=== PATIENT | female | born 1960 | race African-American/Black ===

== ENCOUNTER → 2016-09-07 | Outpatient (CLI) | payer MEDICARE | LOC: RAD 12:52 | PROVIDERS: ATTEND Internal Medicine Gastroenterology | DX: R07.9 Chest pain, unspecified (principal); R13.10 Dysphagia, unspecified; R91.1 Solitary pulmonary nodule | CPT/HCPCS: 71250 ==

== ENCOUNTER → 2016-09-20 | Outpatient (CLI) | payer MEDICARE ==
[2016-09-20 13:12] LABS: ALANINE AMINOTRANSFERASE 49 U/L (9-52); ALBUMIN 3.5 g/dL (3.5-5.0); ALKALINE PHOSPHATASE 209 U/L (38-126); ANION GAP 11 (5-19); ASPARTATE AMINO TRANSFERASE 28 U/L (14-36); BILIRUBIN,TOTAL 0.5 mg/dL (0.2-1.3); BLOOD UREA NITROGEN 12 mg/dL (7-20); CALCIUM 8.9 mg/dL (8.4-10.2); CARBON DIOXIDE 29 mmol/L (22-30); CHLORIDE 94 mmol/L (98-107); CHOLESTEROL 138.41 mg/dL (0-200); CREATININE RESULT 4.23 mg/dL (0.52-1.25); Direct HDL 35 mg/dL (>40); GLUCOSE 93 mg/dL (75-110); POTASSIUM 3.5 mmol/L (3.6-5.0); SODIUM 133.8 mmol/L (137-145); TOTAL PROTEIN 6.6 g/dL (6.3-8.2); TRIGLYCERIDES 139 mg/dL (<150)
[2016-09-20 13:22] LABS: DIRECT LDL 74 mg/dL (<100)
== END ==
LOC: OD 12:00
PROVIDERS: ATTEND Internal Medicine
DX: E78.4 Other hyperlipidemia (principal); I25.118 Atherosclerotic heart disease of native coronary artery with other forms of angina pectoris; Z98.61 Coronary angioplasty status; Z95.1 Presence of aortocoronary bypass graft; I12.9 Hypertensive chronic kidney disease with stage 1 through stage 4 chronic kidney disease, or unspecified chronic kidney disease; N18.9 Chronic kidney disease, unspecified; E11.9 Type 2 diabetes mellitus without complications; R01.1 Cardiac murmur, unspecified; Z79.899 Other long term (current) drug therapy
CPT/HCPCS: 36415; 80053; 80061

== ENCOUNTER → 2016-10-05 | Outpatient (CLI) | payer MEDICARE ==
--- NOTE | 2016-10-05 13:29 | XCELERA REPORT ---
[address] [address] Transthoracic Echocardiogram Report Name: HERB POOZ Age: 56 yrs Gender: Female : 1960 Patient Status: Preadmit Patient Location: Study Date: 10/05/2016 08:10 AM Height: 60 in Weight: 214 lb BSA: 1.9 m2 Procedure: A two-dimensional transthoracic echocardiogram with color flow and Doppler was performed. The study was technically limited with all images being suboptimal in quality. Reason For Study: CP R07.9 History: CP R07.9. Ordering Physician: LULA YANG Performed By: Denver Perez Interpretation Summary The left ventricle is normal in size. There is normal left ventricular wall thickness. LV EF is 55% Left ventricular systolic function is low normal. Doppler measurements suggest normal left ventricular diastolic function The left ventricular wall motion is normal. There is no thrombus. There is no ventricular septal defect visualized. The right ventricle is not well visualized secondary to technical limitations The right atrium is normal. The left atrial size is normal. The interatrial septum is intact with no evidence for an atrial septal defect. There is no evidence of mitral valve prolapse. There is no mitral valve stenosis. There is a mild amount of mitral regurgitation There is no aortic valvular vegetation. There is no aortic valve stenosis There is no LVOT obstruction. No aortic regurgitation is present. There is no tricuspid stenosis. There is a mild amount of tricuspid regurgitation There is moderate pulmonary hypertension by echo RVSP is 54 to 59 mm of Hg , with RA mean of 5 to 10. There is no pulmonic valvular stenosis. There is a mild amount of pulmonic regurgitation The aortic root is normal size. There is no pericardial effusion. MMode/2D Measurements \T\ Calculations RVDd: 3.7 cm LVIDd: 5.4 cm FS: 26.3 % Ao root diam: 2.9 cm IVSd: 1.1 cm LVIDs: 4.0 cm EDV(Teich): 141.8 ml LVPWd: 1.1 cm ESV(Teich): 69.4 ml Ao root area: 6.8 cm2 EF(Teich): 51.0 % LA dimension: 3.8 cm Doppler Measurements \T\ Calculations MV E max tiago: MV P1/2t max tiago: Ao V2 max: LV V1 max P.0 cm/sec 115.5 cm/sec 142.7 cm/sec 4.8 mmHg MV A max tiago: MV P1/2t: 49.9 msec Ao max PG: LV V1 max: 55.3 cm/sec 8.1 mmHg 110.1 cm/sec MV E/A: 2.0 MVA(P1/2t): 4.4 cm2 MV dec slope: 677.5 cm/sec2 MV dec time: 0.18 sec PA V2 max: PI end-d tiago: TR max tiago: RAP systole: 98.2 cm/sec 180.5 cm/sec 348.7 cm/sec 10.0 mmHg PA max PG: TR max P.9 mmHg 48.6 mmHg RVSP(TR): 58.6 mmHg Left Ventricle The left ventricle is normal in size. There is normal left ventricular wall thickness. LV EF is 55%. Left ventricular systolic function is low normal. Doppler measurements suggest normal left ventricular diastolic function. The left ventricular wall motion is normal. There is no thrombus. There is no ventricular septal defect visualized. Right Ventricle The right ventricle is not well visualized secondary to technical limitations. Atria The right atrium is normal. The left atrial size is normal. The interatrial septum is intact with no evidence for an atrial septal defect. Mitral Valve There is no evidence of mitral valve prolapse. There is no vegetation seen on the mitral valve. There is no mitral valve stenosis. There is a mild amount of mitral regurgitation. Aortic Valve There is no aortic valvular vegetation. There is no aortic valve stenosis. There is no LVOT obstruction. No aortic regurgitation is present. Tricuspid Valve There is no tricuspid stenosis. There is a mild amount of tricuspid regurgitation. There is moderate pulmonary hypertension by echo. RVSP is 54 to 59 mm of Hg , with RA mean of 5 to 10. Pulmonic Valve There is no pulmonic valvular stenosis. There is a mild amount of pulmonic regurgitation. Great Vessels The aortic root is normal size. Effusions There is no pericardial effusion. : LULA YANG > Lula Yang
== END ==
LOC: SP 07:14
PROVIDERS: ATTEND Specialist
DX: R07.9 Chest pain, unspecified (principal)
CPT/HCPCS: 93306

== ENCOUNTER → 2016-10-11 | Outpatient (CLI) | payer MEDICARE ==
[~2016-10-11] MED LIST: AMINOPHYLLINE INJ/PF 250 MG/10 ML SDV IV ONE; REGADENOSON INJ 0.4 MG/5 ML DISP.SYRIN IV ONE
--- NOTE | 2016-10-12 10:30 | DRAGON STRESS TEST REPORT ---
INTRAVENOUS LEXISCAN CARDIOLITE STRESS TEST USING SINGLE PHOTON EMMISION COMPUTERIZED TOMOGRAPHIC. DATE OF PROCEDURE: October 11, 2016 INDICATION : Chest pain CARDIAC RISK FACTORS: Diabetes, hypertension, dyslipidemia RESTING EKG: Sinus rhythm with minor nonspecific ST-T wave changes STRESS EKG: No significant changes noted with LexiScan bolus REASON FOR TERMINATION: Protocol. PROCEDURE REPORT: Baseline heart rate 83 beats per minute with blood pressure of 113/33. Patient had no significant complaints. Heart rate at 2 minutes post bolus 100 with a blood pressure of 156/69. 3 minutes post bolus heart rate 86 with blood pressure of 157/65. No significant EKG changes were noted. Patient had no significant complaints during the procedure or postprocedure. CONCLUSIONS: Normal EKG and hemodynamic response to IV LexiScan. NUCLEAR DATA: At rest the patient was given 14.54 millicuries of technetium 99 sestamibi injected intravenously. As per protocol rest gated SPECT images were obtained. Subsequently the patient was given intravenous LexiScan at a dose of 0.4 mg in 5 mL intravenously, followed by flush with normal saline. Subsequently the stress dose of 42.4 millicuries of technetium 99 sestamibi was injected intravenously. As per protocol stress gated images were obtained. NUCLEAR INTERPRETATION: Both raw and processed data were used for interpretation. Visual, qualitative, computer-generated quantitative data was used. There was good myocardial uptake of technetium compound. Motion artifact and soft tissue attenuations were noted. Increased visceral uptake was noted. No definitive areas of transient perfusion defect noted. No definitive areas of fixed perfusion defect or scars noted. Significant soft tissue attenuation was noted. Increased thyroid uptake was noted. EKG gated imaging showed LV EF at 53 %, rest and stress gated EF similar visually. T. I D. ratio was 1.20. Lung heart ratio noted to be within normal limits 0.41. No significant extracardiac and abnormal radiotracer activities were noted. RV free wall uptake was noted to be increased. IMPRESSION: Also refer to comments under nuclear interpretation. Also test results needs to be interpreted in the context of pretest probability. 1. There is no definitive scintigraphic evidence of LexiScan induced myocardial ischemia. 2. There is no definitive scintigraphic evidence of myocardial infarction/scar. 3. EKG gated imaging shows left ejection fraction of approximately 53 %. 4. Clinical correlation requested as occasionally single vessel disease or balanced ischemia could be missed. In approximately 10% of the cases Lexiscan may not cause adequate vasodilatory stress. 5. Increased thyroid uptake was noted. Lung uptake was noted to be at the upper limits of normal. RECOMMENDATIONS: Aggressive risk factor modification, medical therapy. Clinical correlation with echocardiogram derived ejection fraction. Inability to exercise by itself can lead to increased cardiovascular event risks. Consider cardiology consultation and or follow-up if clinically indicated. I AM AVAILABLE FOR CARDIOLOGY CONSULTATION AND FOLLOWUP IF REQUESTED BY PMD Josué Eddy M.D., DI Stranding Machine Operator aircraft ordnance systems mechanic, Board certified in cardiovascular diseases, Nuclear cardiology, Echocardiography Cardiac CT and cardiac MRI Ph. [phone] [facility]
== END ==
LOC: RAD 06:46
PROVIDERS: ATTEND Specialist
DX: R07.9 Chest pain, unspecified (principal); I25.118 Atherosclerotic heart disease of native coronary artery with other forms of angina pectoris; E11.9 Type 2 diabetes mellitus without complications; I10 Essential (primary) hypertension; E78.5 Hyperlipidemia, unspecified
CPT/HCPCS: 93017; 78452; A9500; J2785; J0280; Q9969

== ENCOUNTER 2017-02-14 21:09 | Emergency (ER) | payer MEDICARE ==
[2017-02-14 22:27] LABS: ABSOLUTE BASOPHILS # (AUTO) 0.1 10^3/uL (0.0-0.2); ABSOLUTE EOSINOPHILS # (AUTO) 0.2 10^3/uL (0.0-0.6); ABSOLUTE LYMPHOCYTES (AUTO) 1.7 10^3/uL (0.5-4.7); ABSOLUTE MONOCYTES (AUTO) 0.6 10^3/uL (0.1-1.4); ABSOLUTE NEUT (AUTO) 4.3 10^3/uL (1.7-8.2); BASOPHILS % (AUTO) 0.9 % (0-2); EOSINOPHILS % (AUTO) 3.5 % (0-6); HEMATOCRIT 37.5 % (36.0-47.0); HEMOGLOBIN 11.9 g/dL (12.0-15.5); HGB HCT DIFFERENCE -1.8; LYMPHOCYTES % (AUTO) 24.4 % (13-45); MEAN CORPUSCULAR HEMOGLOBIN 27.1 pg (27.0-33.4); MEAN CORPUSCULAR HGB CONC 31.7 g/dL (32.0-36.0); MEAN CORPUSCULAR VOLUME 86 fl (80-97); MONOCYTES % (AUTO) 8.1 % (3-13); RED BLOOD COUNT 4.38 10^6/uL (3.72-5.28); SEGMENTED NEUTROPHILS % (AUTO) 63.1 % (42-78); WHITE BLOOD COUNT 6.8 10^3/uL (4.0-10.5)
[2017-02-14 22:41] LABS: ALANINE AMINOTRANSFERASE 48 U/L (9-52); ALBUMIN 4.4 g/dL (3.5-5.0); ALKALINE PHOSPHATASE 221 U/L (38-126); ANION GAP 15 (5-19); ASPARTATE AMINO TRANSFERASE 29 U/L (14-36); BILIRUBIN,DIRECT 0.5 mg/dL (0.0-0.4); BILIRUBIN,TOTAL 0.6 mg/dL (0.2-1.3); BLOOD UREA NITROGEN 14 mg/dL (7-20); CALCIUM 9.2 mg/dL (8.4-10.2); CARBON DIOXIDE 29 mmol/L (22-30); CHLORIDE 95 mmol/L (98-107); CREATINE KINASE 45 U/L (30-135); CREATININE RESULT 5.33 mg/dL (0.52-1.25); GLUCOSE 87 mg/dL (75-110); POTASSIUM 4.4 mmol/L (3.6-5.0); SODIUM 138.5 mmol/L (137-145); TOTAL PROTEIN 7.6 g/dL (6.3-8.2)
[2017-02-14 22:53] LABS: CREATINE KINASE MB 1.05 ng/mL (<4.55)
[2017-02-14 22:57] LABS: TROPONIN I 0.036 ng/mL
[2017-02-14] MEDS ORDERED: METOCLOPRAMIDE HCL INJ/PF 10 MG/2 ML SDV IV ONE (23:41)
[2017-02-14] MEDS ORDERED: DIPHENHYDRAMINE HCL 50 MG/ML VIAL IV ONE (23:41)
--- NOTE | 2017-02-15 00:37 | ER Document Report ---
ED General - General Chief Complaint: Chest Pain Stated Complaint: CHEST PAIN AND HEADACHE Time Seen by Provider: 02/14/17 23:29 Notes: Patient is a pleasant 56-year-old female who presents with complaint of tightness in her chest and headache. Patient says that she has a tightness in her chest every day. She states she has had it every day since her coronary bypass surgery in February of last year. She is followed by a local tool designer here as well as a tool designer in [place]. She says that she recently had a stress test in September because of the continued chest tightness which was normal. She has a follow-up appointment with her tool designer in [place] on February 27 because of the continued chest tightness. She just saw her tool designer last month and they did some medication adjustments but she said it made no difference. She said the main reason why she came in today is that at the end of dialysis she developed a headache. She says she usually does not have a headache. She says again the chest tightness is something that has been continuous but headache is something new. She says the headache is started to improve some. She says she gets dialysis Sunday and Sunday. She had a full dialysis today. She denies any recent fevers or infections. She has no other complaints at this time. No focal weakness or numbness. Headache gradually worsened at the end of dialysis. TRAVEL OUTSIDE OF THE [place] IN LAST 30 DAYS: No - Related Data Allergies/Adverse Reactions: SAMM Inhibitors [Samm Inhibitors] Allergy (Unknown, Verified 12/05/13 18:50) ACEINHIBITORS [SAMM Inhibitors] Allergy (Unknown, Verified 12/05/13 18:50) erythromycin base [Erythromycin Base] Allergy (Unknown, Verified 12/05/13 18:50) Iodinated Contrast- Oral and IV Dye [IV Dye, Iodine Containing] Allergy (Unknown , Verified 12/05/13 18:50) Penicillins Allergy (Unknown, Verified 12/05/13 18:50) quinapril HCl [From Accupril] Allergy (Unknown, Verified 12/05/13 18:50) quinine [Quinine] Allergy (Unknown, Verified 12/05/13 18:50) vancomycin [Vancomycin] Allergy (Unknown, Verified 12/05/13 18:50) promethazine HCl [From Phenergan] Allergy (Verified 12/05/13 18:50) Past Medical History - Social History Smoking Status: Unknown if Ever Smoked Frequency of alcohol use: None Drug Abuse: None Family History: Reviewed & Not Pertinent Patient has suicidal ideation: No Patient has homicidal ideation: No - Past Medical History Cardiac Medical History: Reports: Hx Hypercholesterolemia, Hx Hypertension Pulmonary Medical History: Denies: Hx Tuberculosis Endocrine Medical History: Reports: Hx Diabetes Mellitus Type 2 Renal/ Medical History: Reports: Hx End Stage Renal Disease, Hx Hemodialysis. Denies: Hx Peritoneal Dialysis Past Surgical History: Reports: Hx Abdominal Surgery - umbilical hernia, Hx Hysterectomy, Hx Tonsillectomy - and adenoids. Denies: Hx Pacemaker - Immunizations Hx Diphtheria, Pertussis, Tetanus Vaccination: Yes - <5 years Hx Pneumococcal Vaccination: 04/29/12 Review of Systems - Review of Systems Notes: My Normal Review Basic REVIEW OF SYSTEMS: CONSTITUTIONAL : Denies fever, chills, or sweats. Denies recent illness. EENT: Denies eye, ear, throat, or mouth pain or symptoms. Denies nasal or sinus congestion. CARDIOVASCULAR: Chest tightness RESPIRATORY: Denies cough, cold, or chest congestion. Denies shortness of breath, difficulty breathing, or wheezing. GASTROINTESTINAL: Denies abdominal pain. Denies nausea, vomiting, or diarrhea. Denies constipation. Last BM: MUSCULOSKELETAL: Denies neck or back pain or joint pain or swelling. SKIN: Denies rash or skin lesions. NEUROLOGICAL: Denies altered mental status or loss of consciousness. Has a headache. Denies weakness or paralysis or loss of use of either side. Denies problems with gait or speech. Denies sensory or motor loss. ALL OTHER SYSTEMS REVIEWED AND NEGATIVE. Physical Exam - Vital signs Vitals: Temp Pulse Resp BP Pulse Ox 98.0 F 82 20 155/54 H 99 02/14/17 21:24 02/14/17 21:24 02/14/17 21:24 02/14/17 21:24 02/14/17 21:24 - Notes Notes: General Appearance: Well nourished, alert, cooperative, no acute distress, no obvious discomfort. Very comfortable appearing. Vitals: reviewed, See vital signs table. Head: no swelling or tenderness to the head Eyes: PERRL, EOMI, Conjuctiva clear Mouth: No decreasd moisture Neck: Supple, no neck tenderness, Lungs: No wheezing, No rales, No rhonci, No accessory muscle use, good air exchange bilaterally. Heart: Normal rate, Regular rythm, No murmur, no rub Abdomen: Normal BS, soft, No rigidity, No abdominal tenderness, No guarding, no rebound, no abdominal masses, no organomegaly Extremities: strength 5/5 in all extremities, good pulses in all extremities, no swelling or tenderness in the extremities, no edema. Fistula in left upper extremity has good palpable thrill and good distal pulses in extremity. Skin: warm, dry, appropriate color, no rash Neuro: speech clear, oriented x 3, normal affect, responds appropriately to questions. Cranial nerves II through XII are intact. Distal sensation intact. Patient moves all extremities without difficulty. Course - Re-evaluation Re-evalutation: 02/16/17 00:41 Patient's tightness in her chest is chronic since her coronary bypass a year ago. She has been followed for this by both her local tool designer and her tool designer in [place]. The only difference today was that she had associated headache. The headache is resolved. Headache was gradual in onset and seem to be related to her increase in blood pressure. She had no focal neurologic deficits associated with headache. Patient's EKG and repeat EKG as well as her troponin and delta troponin are normal. There are no concerning findings on her evaluation. I feel she is safe to follow-up with her tool designer as scheduled. I encouraged her to return to ER if she has worsening chest tightness, recurrent headaches, or feels unwell. Patient agrees with plan and will be discharged home. Dictation of this chart was performed using voice recognition software; therefore, there may be some unintended grammatical errors. - Vital Signs Vital signs: Temp Pulse Resp BP Pulse Ox 98.3 F 86 20 164/85 H 100 02/15/17 03:17 02/15/17 03:17 02/15/17 03:17 02/15/17 03:17 02/15/17 03:17 - Laboratory Result Diagrams: 02/14/17 22:17 02/14/17 22:17 Laboratory results interpreted by me: 02/14/17 02/14/17 22:17 22:17 Hgb 11.9 L MCHC 31.7 L RDW 18.0 H Plt Count 146 L Chloride 95 L Creatinine 5.33 H Est GFR ( Amer) 10 L Est GFR (Non-Af Amer) 8 L Direct Bilirubin 0.5 H Alkaline Phosphatase 221 H - EKG Interpretation by Me Additional EKG results interpreted by me: 02/15/17 00:32 EKG #1 is reviewed and interpreted by me. EKG shows normal sinus rhythm with rate of [address] segment elevation or depression. No new T-wave inversions in comparison to old EKG from December 05, 2013. AK interval, QRS duration , QTc intervals are within normal range. EKG #2 is reviewed and interpreted by me. EKG shows normal sinus rhythm with a rate of [address] segment elevation or depression. No new T wave inversions. AK interval is slightly prolonged. QRS duration, QTc intervals are within normal range. Discharge - Discharge Clinical Impression: Chest pain Qualifiers: Chest pain type: unspecified Qualified Code(s): R07.9 - Chest pain, unspecified Headache Qualifiers: Headache type: unspecified Headache chronicity pattern: acute headache Intractability: not intractable Qualified Code(s): R51 - Headache Condition: Good Disposition: HOME, SELF-CARE Additional Instructions: Please follow up with your doctor on February 27 as scheduled. Please return to the ER immediately if you have difficulty breathing or worsening of your chest tightness. Please return to the ER if you have recurrent headaches or vomiting. Referrals: AFTAB MELENDEZ MD [Primary Care Provider] - Follow up as needed
--- NOTE | 2017-02-15 01:25 | RADIOLOGY REPORT (SQ) ---
EXAM DESCRIPTION: CHEST SINGLE VIEW COMPLETED DATE/TIME: 02/15/2017 1:16 am REASON FOR STUDY: chest pain COMPARISON: 12/05/2013. NUMBER OF VIEWS: One view. TECHNIQUE: Single frontal radiographic view of the chest acquired. LIMITATIONS: None. FINDINGS: LUNGS AND PLEURA: No opacities, masses or pneumothorax. No pleural effusion. MEDIASTINUM AND HILAR STRUCTURES: No masses. Contour normal. HEART AND VASCULAR STRUCTURES: Heart enlarged without failure. Normal vasculature. BONES: No acute findings. HARDWARE: Sternotomy wires. Surgical clips. OTHER: No other significant finding. IMPRESSION: HEART ENLARGED WITHOUT FAILURE. NO OTHER SIGNIFICANT RADIOGRAPHIC FINDING IN THE CHEST. TECHNICAL DOCUMENTATION: JOB ID: [id number] [employer]- All Rights Reserved
[2017-02-15 03:19] VITALS: BP 164/85
--- NOTE | 2017-02-16 06:02 | EKG REPORT ---
SEVERITY:- NORMAL ECG - SINUS RHYTHM : Confirmed by: Lula Younger MD 16-Feb-2017 06:01:22
--- NOTE | 2017-02-16 06:02 | EKG REPORT ---
SEVERITY:- ABNORMAL ECG - SINUS RHYTHM FIRST DEGREE AV BLOCK NONSPECIFIC T ABNORMALITIES, LATERAL LEADS : Confirmed by: Lula Younger MD 16-Feb-2017 06:01:18
== END 2017-02-15 03:17 | disposition home or self-care (01) ==
LOC: ER 21:09
DX: R07.9 Chest pain, unspecified (principal); R51 Headache; Z99.2 Dependence on renal dialysis
CPT/HCPCS: 93005; 99285; 96374; 96375; 36415; 82553; 82550; 85025; 80053; 84484; 71010; 93010; J1200; J2765; 80061

== ENCOUNTER → 2017-02-14 | Outpatient (CLI) | payer MEDICARE ==
[2017-02-14 12:44] LABS: CHOLESTEROL 127.04 mg/dL (0-200); Direct HDL 42 mg/dL (>40); TRIGLYCERIDES 110 mg/dL (<150)
[2017-02-14 12:54] LABS: DIRECT LDL 62 mg/dL (<100)
== END ==
LOC: OD 11:46
PROVIDERS: ATTEND Internal Medicine
DX: E78.4 Other hyperlipidemia (principal); I25.118 Atherosclerotic heart disease of native coronary artery with other forms of angina pectoris; Z98.61 Coronary angioplasty status; Z95.1 Presence of aortocoronary bypass graft; I12.9 Hypertensive chronic kidney disease with stage 1 through stage 4 chronic kidney disease, or unspecified chronic kidney disease; N18.9 Chronic kidney disease, unspecified; E11.9 Type 2 diabetes mellitus without complications; R06.09 Other forms of dyspnea; R01.1 Cardiac murmur, unspecified; G47.30 Sleep apnea, unspecified; Z79.899 Other long term (current) drug therapy
CPT/HCPCS: 36415; 80061

== ENCOUNTER → 2017-10-04 | Outpatient (CLI) | payer MEDICARE | LOC: SP 08:18 | PROVIDERS: ATTEND Specialist | DX: R07.9 Chest pain, unspecified (principal); Z53.8 Procedure and treatment not carried out for other reasons ==

== ENCOUNTER → 2017-10-18 | Outpatient (CLI) | payer MEDICARE ==
--- NOTE | 2017-10-18 12:10 | DRAGON STRESS TEST REPORT ---
INTRAVENOUS LEXISCAN CARDIOLITE STRESS TEST USING SINGLE PHOTON EMMISION COMPUTERIZED TOMOGRAPHIC. DATE OF PROCEDURE: October 18, 2017, INDICATION : Chest pain CARDIAC RISK FACTORS: Hypertension, dyslipidemia, history of CAD with previous CABG RESTING EKG: Sinus rhythm without any significant baseline ST segment changes. STRESS EKG: No significant ST segment changes noted with LexiScan bolus REASON FOR TERMINATION: Protocol. PROCEDURE REPORT: Baseline heart rate 74 beats per minute with blood pressure of 99/61. Patient had no significant complaints. Patient was bolused with Lexiscan 0.4 mg intravenously followed by saline bolus. Heart rate at 2 minutes post bolus 103 with a blood pressure of 86/41. 3 minutes post bolus heart rate 69 with blood pressure of 76/43. Recovery blood pressure at 4 minutes into procedure was 105/52 with heart rate of 67. No significant EKG changes were noted. Patient had no significant complaints during the procedure or postprocedure. Patient injected with Aminophyllin 75 mg at 3 minutes or later after Lexiscan bolus. CONCLUSIONS: Normal EKG and hemodynamic response to IV LexiScan. NUCLEAR DATA: At rest the patient was given 13.55 millicuries of technetium 99 sestamibi injected intravenously. As per protocol rest gated SPECT images were obtained. On day of stress test, the patient was given intravenous LexiScan at a dose of 0.4 mg in 5 mL intravenously, followed by flush with normal saline. Subsequently the stress dose of 45.3 millicuries of technetium 99 sestamibi was injected intravenously. As per protocol stress gated images were obtained. NUCLEAR INTERPRETATION: Both raw and processed data were used for interpretation. Visual, qualitative, computer-generated quantitative data was used. There was good myocardial uptake of technetium compound. Motion artifact and soft tissue attenuations were noted. Increased visceral uptake was noted. Distal and mid inferolateral mild decreased uptake noted especially in the stress imaging consistent with mild ischemia, No definitive areas of fixed perfusion defect or scars noted. EKG gated imaging showed LV EF at 57 %, rest and stress gated EF similar visually. T. I D. ratio was 0.93. Lung heart ratio noted to be within normal limits 0.39. No significant extracardiac and abnormal radiotracer activities were noted. RV free wall uptake was noted to be WNL. IMPRESSION: Also refer to comments under nuclear interpretation. Also test results needs to be interpreted in the context of pretest probability. 1. Distal and mid inferolateral mild decreased uptake noted especially in the stress imaging consistent with mild ischemia 2. There is no definitive scintigraphic evidence of myocardial infarction/scar. 3. EKG gated imaging shows left ventricular ejection fraction of approx. 57 %. Borderline distal inferolateral hypokinesia suspected. 4. Clinical correlation requested as worse disease or balanced ischemia could be missed. In approximately 10% of the cases Lexiscan may not cause adequate vasodilatory stress. RECOMMENDATIONS: Aggressive risk factor modification and medical management. Further evaluation may be needed if continued symptoms or other high risk indicators are noted on clinical evaluation. Close cardiology follow-up is also recommended. Clinical correlation with echocardiogram derived ejection fraction. Inability to exercise by itself can lead to increased cardiovascular event risks. Consider cardiology consultation and or follow-up if clinically indicated. I am available for cardiology evaluation and consultation if requested by the screw down, unless patient already has a twister in. BRIE
== END ==
LOC: RAD 07:09
PROVIDERS: ATTEND Internal Medicine
DX: R07.9 Chest pain, unspecified (principal); I10 Essential (primary) hypertension; E78.5 Hyperlipidemia, unspecified; Z95.1 Presence of aortocoronary bypass graft; Z86.79 Personal history of other diseases of the circulatory system
CPT/HCPCS: 93017; 78452; A9500; J2785; J0280; Q9969

== ENCOUNTER → 2017-11-27 | Outpatient (CLI) | payer MEDICARE ==
--- NOTE | 2017-11-27 14:18 | RADIOLOGY REPORT (SQ) ---
EXAM DESCRIPTION: CT CHEST WITHOUT COMPLETED DATE/TIME: 11/27/2017 12:36 pm REASON FOR STUDY: DYSPNEA (R06.09), CHEST PAIN (R07.9) R91.1 SOLITARY PULMONARY NODULE R07.9 CHEST PAIN, UNSPECIFIED COMPARISON: [facility] CT angio chest 12/06/2013 CT chest without contrast 09/07/2016 TECHNIQUE: CT scan performed of the chest without intravenous contrast. Images reviewed with lung, soft tissue and bone windows. Reconstructed coronal and sagittal MPR images reviewed. All images st ored on PACS. All CT scanners at this facility use dose modulation, iterative reconstruction, and/or weight based d osing when appropriate to reduce radiation dose to as low as reasonably achievable (ALARA). [facility]: Dose Right [facility]: CareDose [facility]: Dose Right [facility]: Teradose 4D [facility]: A LITTLE WORLD RADIATION DOSE: CT Rad equipment meets quality standard of care and radiation dose reduction techniq ues were employed. CTDIvol: 18.9 mGy. DLP: 622 mGy-cm. mGy. LIMITATIONS: No technical limitations. FINDINGS: LUNGS AND PLEURA: In the right middle lobe, a 9 x 4 mm nodule is present on axial image 55 . This is stable since 2013, and requires no further specific follow up. Remainder of the lungs are otherwise unremarkable. No pleural effusions. No pneumothorax. Airways are patent. HILAR AND MEDIASTINAL STRUCTURES: No identified masses or abnormal nodes. No obvious aneurysm. HEART AND VASCULAR STRUCTURES: No aneurysm. No pericardial effusion. Old sternotomy for CABG UPPER ABDOMEN: No significant findings. Limited exam. THYROID AND OTHER SOFT TISSUES: No masses. No adenopathy. 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 OTHER: No other significant findings. IMPRESSION: Benign nodule in the right middle lobe. No lung parenchymal findings to explain history of dyspnea Old sternotomy for CABG Dense bony sclerosis from renal osteodystrophy TECHNICAL DOCUMENTATION: JOB ID: [id number] Quality ID # [id number]: Final reports with documentation of one or more dose reduction techniques (e.g., Au tomated exposure control, adjustment of the mA and/or kV according to patient size, use of iterative reconstruction technique) 2010 [employer]- All Rights Reserved Reading location - IP/workstation name: [facility]
== END ==
LOC: RAD 13:28
PROVIDERS: ATTEND Internal Medicine Critical Care Medicine
DX: G47.34 Idiopathic sleep related nonobstructive alveolar hypoventilation (principal); R06.09 Other forms of dyspnea; R07.9 Chest pain, unspecified; R12 Heartburn; R91.1 Solitary pulmonary nodule; Z95.1 Presence of aortocoronary bypass graft; F51.04 Psychophysiologic insomnia
CPT/HCPCS: 71250

== ENCOUNTER → 2018-04-23 | Outpatient (CLI) | payer MEDICARE, OTHER ==
--- NOTE | 2018-04-23 13:01 | RADIOLOGY REPORT (SQ) ---
EXAM DESCRIPTION: NM GASTRIC EMPTYING STUDY COMPLETED DATE/TIME: 04/23/2018 12:41 pm REASON FOR STUDY: GERD (K21.9) K21.9 GASTRO-ESOPHAGEAL REFLUX DISEASE WITHOUT ESOPHAGITIS COMPARISON: None. RADIONUCLIDE AND DOSE: 2.19 millicuries Tc-99m Sulfur Colloid. Egg salad sandwich The route of agent administration: Oral. TECHNIQUE: 1 minute serial static imaging performed at time of meal, 1 hour, 2 hours, 3 hours, and 4 hours as needed. Once stomach reaches 90% emptying, the test is complete. Image intensity values plo tted with respect to time with linear regression algorithm. LIMITATIONS: None. FINDINGS: Patient was observed for 4 hours. Immediate post meal serves as baseline. Gastric emptying at 60 minutes was 47%. Gastric emptying at 90 minutes was 61%. Gastric emptying at 120 minutes was 71% Gastric emptying at 240 minutes was 92%. IMPRESSION: NORMAL GASTRIC EMPTYING. TECHNICAL DOCUMENTATION: JOB ID: [id number] [employer]- All Rights Reserved Reading location - IP/workstation name: [facility]
== END ==
LOC: RAD 07:28
PROVIDERS: ATTEND Internal Medicine Gastroenterology
DX: K21.9 Gastro-esophageal reflux disease without esophagitis (principal)
CPT/HCPCS: 78264; A9541

== ENCOUNTER → 2018-06-05 | Outpatient (CLI) | payer MEDICARE, OTHER ==
--- NOTE | 2018-06-05 16:28 | XCELERA REPORT ---
[address] [facility] [address] Lower Extremity Venous Evaluation Procedure: Color flow and duplex imaging of the veins of the right lower extremity as well as the left Common Femoral vein. Right Sided Venous Evaluation Peroneal vein not well seen. Normal vessel filling wall to wall, compression and augmentation as well as Colour flow down to the infrageniculate veins. Left Sided Venous Evaluation The left common femoral vein is fully compressible. Spontaneous and phasic flow is present in the left common femoral vein. Interpretation Summary No duplex evidence of DVT or obstruction in the right lower extremity nor in the left Common Femoral vein. Name: HERB POZO Age: 57 yrs Gender: Female : 1960 Patient Status: Outpatient Patient Location: Study Date: 06/05/2018 03:04 PM Reason For Study: RLE SWELLING Ordering Physician: AFTAB MELENDEZ Performed By: Priya Lofton : AFTBA MELENDEZ > Indra Pinedo
== END ==
LOC: SP 12:11
PROVIDERS: ATTEND Family Medicine
DX: I80.221 Phlebitis and thrombophlebitis of right popliteal vein (principal); R60.0 Localized edema
CPT/HCPCS: 93971

== ENCOUNTER → 2018-08-01 | Outpatient (CLI) | payer MEDICARE, OTHER ==
[2018-08-01 14:34] LABS: ABSOLUTE BASOPHILS # (AUTO) 0.1 10^3/uL (0.0-0.2); ABSOLUTE EOSINOPHILS # (AUTO) 0.2 10^3/uL (0.0-0.6); ABSOLUTE LYMPHOCYTES (AUTO) 2.1 10^3/uL (0.5-4.7); ABSOLUTE MONOCYTES (AUTO) 0.7 10^3/uL (0.1-1.4); ABSOLUTE NEUT (AUTO) 5.2 10^3/uL (1.7-8.2); BASOPHILS % (AUTO) 0.8 % (0-2); EOSINOPHILS % (AUTO) 2.8 % (0-6); HEMATOCRIT 37.1 % (36.0-47.0); INTERNATIONAL RATION (INR) 1.02; LYMPHOCYTES % (AUTO) 24.9 % (13-45); MEAN CORPUSCULAR HEMOGLOBIN 27.1 pg (27.0-33.4); MEAN CORPUSCULAR HGB CONC 32.4 g/dL (32.0-36.0); MEAN CORPUSCULAR VOLUME 84 fl (80-97); MONOCYTES % (AUTO) 8.9 % (3-13); PARTIAL THROMBOPLASTIN TIME 26.7 SEC (23.5-35.8); PLATELET COUNT 217 10^3/uL (150-450); PROTHROMBIN TIME 13.9 SEC (11.4-15.4); RED BLOOD COUNT 4.42 10^6/uL (3.72-5.28); RED CELL DISTRIBUTION WIDTH 19.3 % (11.5-14.0); SEGMENTED NEUTROPHILS % (AUTO) 62.6 % (42-78); TOTAL CELLS COUNTED % (AUTO) 100 %; WHITE BLOOD COUNT 8.4 10^3/uL (4.0-10.5)
[2018-08-01 14:55] LABS: ANION GAP 11 (5-19); BLOOD UREA NITROGEN 35 mg/dL (7-20); CARBON DIOXIDE 31 mmol/L (22-30); CHLORIDE 96 mmol/L (98-107); GLUCOSE 96 mg/dL (75-110); POTASSIUM 5.8 mmol/L (3.6-5.0); SODIUM 138.3 mmol/L (137-145)
== END ==
LOC: OD 13:37
PROVIDERS: ATTEND Specialist
DX: I25.118 Atherosclerotic heart disease of native coronary artery with other forms of angina pectoris (principal); Z98.61 Coronary angioplasty status; Z95.1 Presence of aortocoronary bypass graft; R06.09 Other forms of dyspnea; I12.9 Hypertensive chronic kidney disease with stage 1 through stage 4 chronic kidney disease, or unspecified chronic kidney disease; E11.22 Type 2 diabetes mellitus with diabetic chronic kidney disease; N18.9 Chronic kidney disease, unspecified; E78.49 Other hyperlipidemia; G47.30 Sleep apnea, unspecified; Z79.899 Other long term (current) drug therapy
CPT/HCPCS: 36415; 80051; 82565; 82947; 83735; 84520; 85025; 85610; 85730

== ENCOUNTER → 2018-09-05 | Outpatient (CLI) | payer MEDICARE, OTHER ==
--- NOTE | 2018-09-05 22:50 | XCELERA REPORT ---
[address] [address] Transthoracic Echocardiogram Report Name: HERB POZO Age: 58 yrs Gender: Female : 1960 Patient Status: Outpatient Patient Location: RAD Study Date: 09/05/2018 01:55 PM Height: 60 in Weight: 230 lb BSA: 2.0 m2 Procedure: A two-dimensional transthoracic echocardiogram with color flow and Doppler was performed. Study Quality: Poor. The study was technically difficult with many images being suboptimal in quality. Poor endocardial visualisation and poor doppler interogation. Reason For Study: SOB History: Shortness of breath. Ordering Physician: CON FONTENOT Performed By: Priya Lofton Interpretation Summary Poor endocardial visualisation and poor doppler interogation. The left ventricle is normal in size. There is normal left ventricular wall thickness. LV EF is > than 60% The left ventricular ejection fraction is normal. LV diastolic function not assessed. Probably no regional wall motion abnormality Right atrium not well visualized secondary to technical limitations The left atrium is mildly dilated. There is no evidence of mitral valve prolapse. There is no vegetation seen on the mitral valve. There is no mitral valve stenosis. There is no mitral regurgitation noted. There is no aortic valve stenosis There is no LVOT obstruction. No aortic regurgitation is present. There is no tricuspid stenosis. There is a trace amount of tricuspid regurgitation There is mild pulmonary hypertension by echo RVSP is 32 to 37 mm of Hg , with R mean of 5 to 10. There is no pulmonic valvular stenosis. There is no pulmonic valvular regurgitation. The inferior vena cava appeared normal and decreased > 50% with respiration (RAP 5-10 mmHg) There is no pericardial effusion. MMode/2D Measurements & Calculations RVDd: 3.9 cm LVIDd: 4.7 cm FS: 38.0 % Ao root diam: 2.6 cm IVSd: 1.1 cm LVIDs: 2.9 cm EDV(Teich): 104.7 ml Ao root area: 5.3 cm2 LVPWd: 1.2 cm ESV(Teich): 33.4 ml EF(Teich): 68.1 % Doppler Measurements & Calculations Ao V2 max: LV V1 max PG: PA V2 max: TR max tiago: 133.1 cm/sec 5.3 mmHg 135.4 cm/sec 258.0 cm/sec Ao max P.1 mmHgLV V1 max: PA max P.3 mmHgTR max P.6 mmHg 115.4 cm/sec Left Ventricle The left ventricle is normal in size. There is normal left ventricular wall thickness. LV EF is > than 60%. The left ventricular ejection fraction is normal. LV diastolic function not assessed. Probably no regional wall motion abnormality. Right Ventricle The right ventricle is not well visualized secondary to technical limitations. Atria Right atrium not well visualized secondary to technical limitations. The left atrium is mildly dilated. Mitral Valve There is no evidence of mitral valve prolapse. There is no vegetation seen on the mitral valve. There is no mitral valve stenosis. There is no mitral regurgitation noted. Aortic Valve There is no aortic valvular vegetation. There is no aortic valve stenosis. There is no LVOT obstruction. No aortic regurgitation is present. Tricuspid Valve There is no tricuspid stenosis. There is a trace amount of tricuspid regurgitation. There is mild pulmonary hypertension by echo. RVSP is 32 to 37 mm of Hg , with R mean of 5 to 10. Pulmonic Valve There is no pulmonic valvular stenosis. There is no pulmonic valvular regurgitation. Great Vessels The aortic root is not well visualized but is probably normal size. The inferior vena cava appeared normal and decreased > 50% with respiration (RAP 5-10 mmHg). Effusions There is no pericardial effusion. : CON FONTENOT > Lula Younger
== END ==
LOC: RAD 12:06
PROVIDERS: ATTEND Internal Medicine Critical Care Medicine
DX: R06.02 Shortness of breath (principal)
CPT/HCPCS: 93306

== ENCOUNTER → 2018-10-10 | Outpatient (CLI) | payer MEDICARE, OTHER ==
[2018-10-10 11:42] LABS: ABSOLUTE EOSINOPHILS # (AUTO) 0.3 10^3/uL (0.0-0.6); ABSOLUTE LYMPHOCYTES (AUTO) 1.9 10^3/uL (0.5-4.7); ABSOLUTE MONOCYTES (AUTO) 0.7 10^3/uL (0.1-1.4); ABSOLUTE NEUT (AUTO) 5.1 10^3/uL (1.7-8.2); BASOPHILS % (AUTO) 0.6 % (0-2); EOSINOPHILS % (AUTO) 3.7 % (0-6); HEMATOCRIT 33.8 % (36.0-47.0); HEMOGLOBIN 11.1 g/dL (12.0-15.5); LYMPHOCYTES % (AUTO) 23.6 % (13-45); MEAN CORPUSCULAR HEMOGLOBIN 27.9 pg (27.0-33.4); MEAN CORPUSCULAR HGB CONC 32.8 g/dL (32.0-36.0); MEAN CORPUSCULAR VOLUME 85 fl (80-97); PLATELET COUNT 198 10^3/uL (150-450); RED BLOOD COUNT 3.97 10^6/uL (3.72-5.28); RED CELL DISTRIBUTION WIDTH 18.5 % (11.5-14.0); SEGMENTED NEUTROPHILS % (AUTO) 63.1 % (42-78); TOTAL CELLS COUNTED % (AUTO) 100 %; WHITE BLOOD COUNT 8.1 10^3/uL (4.0-10.5)
[2018-10-10 11:44] LABS: INTERNATIONAL RATION (INR) 1.02; PROTHROMBIN TIME 13.9 SEC (11.4-15.4)
[2018-10-10 11:45] LABS: PARTIAL THROMBOPLASTIN TIME 29.2 SEC (23.5-35.8)
[2018-10-10 12:03] LABS: ANION GAP 14 (5-19); BLOOD UREA NITROGEN 26 mg/dL (7-20); CARBON DIOXIDE 30 mmol/L (22-30); CHLORIDE 93 mmol/L (98-107); GLUCOSE 92 mg/dL (75-110); POTASSIUM 4.8 mmol/L (3.6-5.0); SODIUM 136.7 mmol/L (137-145)
== END ==
LOC: OD 10:33
PROVIDERS: ATTEND Specialist
DX: I25.118 Atherosclerotic heart disease of native coronary artery with other forms of angina pectoris (principal); Z98.61 Coronary angioplasty status; Z95.1 Presence of aortocoronary bypass graft; R06.09 Other forms of dyspnea; R01.1 Cardiac murmur, unspecified; E11.22 Type 2 diabetes mellitus with diabetic chronic kidney disease; I12.9 Hypertensive chronic kidney disease with stage 1 through stage 4 chronic kidney disease, or unspecified chronic kidney disease; N18.9 Chronic kidney disease, unspecified; G47.30 Sleep apnea, unspecified; E78.49 Other hyperlipidemia
CPT/HCPCS: 36415; 80051; 82565; 82947; 83735; 84520; 85025; 85610; 85730

== ENCOUNTER → 2018-12-03 | Outpatient (CLI) | payer MEDICARE, OTHER ==
[~2018-12-03] MED LIST changes: -AMINOPHYLLINE INJ/PF 250 MG/10 ML SDV IV ONE
--- NOTE | 2018-12-05 22:42 | DRAGON STRESS TEST REPORT ---
Intravenous Lexiscan Cardiolite stress test using single photon emmision computerized tomography. Date of procedure: 12/03/2018. Ordering Provider: Dr. Lula Younger. Patient's status: Out Patient. Indication: Coronary artery disease. Assess progression. Coronary risk factors: Age, and dyslipidemia. Resting EKG: Sinus Rhythm. Poor R wave progression leads V1 to V6. Stress EKG: No changes of ischemia. The patient had no chest pain or discomfort and there were no arrhythmias seen. Reason for termination: Protocol. Conclusions: Normal EKG and hemodynamic response to IV Lexiscan. Nuclear data: At rest the patient was given 14.58 millicuries of technetium 99m sestamibi injected intravenously. As per protocol rest non gated SPECT images were obtained. Subsequently the patient was given intravenous Lexiscan at a dose of 0.4 mg in 5 mL intravenously, followed by flush with normal saline. Subsequently the stress dose of 42.3 millicuries of technetium 99m sestamibi was injected intravenously. As per protocol stress gated images were obtained. Nuclear interpretation: Review of images showed that low counts in both the rest and the stress images. Also there is bowel contamination and liver contamination artifact of the inferior wall and best contamination artifact of the anterior wall hence this is a difficult study and poor quality study. In spite of this all segments of the myocardium had normal perfusion at rest, and normal perfusion post stress with IV Lexiscan. All segments of the myocardium had normal motion, contraction, and thickening by gated study. T. I D. ratio was normal at 1.06. There is no transient ischemic dilatation of the left ventricle. Computer read rest, and stress left ventricular ejection fraction were 52 %, and 63 %, respectively. Visually both the stress and rest ejection fractions were normal, and greater than 60 %. Conclusion: 1. There is no scintigraphic evidence of Lexiscan induced myocardial ischemia. 2. There is no scintigraphic evidence of myocardial infarction/scar. Recommendations: Aggressive risk factor modification, and treating the underlying co- morbidities. MTDD
== END ==
LOC: RAD 07:05
PROVIDERS: ATTEND Specialist
DX: I25.10 Atherosclerotic heart disease of native coronary artery without angina pectoris (principal)
CPT/HCPCS: 93017; 78452; A9500; J2785; Q9969

== ENCOUNTER → 2019-01-21 | Outpatient (CLI) | payer MEDICARE, OTHER | LOC: RAD 10:25 | PROVIDERS: ATTEND Specialist | DX: I25.10 Atherosclerotic heart disease of native coronary artery without angina pectoris (principal) | CPT/HCPCS: 93306 ==

== ENCOUNTER 2019-06-23 08:15 | Emergency (ER) | payer OTHER, MEDICARE ==
[2019-06-23] MEDS ORDERED: NORMAL SALINE 1000 ML 250 ML IV ONE (08:53)
[2019-06-23 09:24] LABS: ABSOLUTE BASOPHILS # (AUTO) 0.1 10^3/uL (0.0-0.2); ABSOLUTE EOSINOPHILS # (AUTO) 0.3 10^3/uL (0.0-0.6); ABSOLUTE LYMPHOCYTES (AUTO) 2.3 10^3/uL (0.5-4.7); ABSOLUTE MONOCYTES (AUTO) 0.8 10^3/uL (0.1-1.4); ABSOLUTE NEUT (AUTO) 13.6 10^3/uL (1.7-8.2); BASOPHILS % (AUTO) 0.6 % (0-2); EOSINOPHILS % (AUTO) 1.6 % (0-6); HEMATOCRIT 23.6 % (36.0-47.0); LYMPHOCYTES % (AUTO) 13.3 % (13-45); MEAN CORPUSCULAR HEMOGLOBIN 27.5 pg (27.0-33.4); MEAN CORPUSCULAR HGB CONC 31.2 g/dL (32.0-36.0); MEAN CORPUSCULAR VOLUME 88 fl (80-97); MONOCYTES % (AUTO) 4.6 % (3-13); PLATELET COUNT 192 10^3/uL (150-450); RED BLOOD COUNT 2.68 10^6/uL (3.72-5.28); RED CELL DISTRIBUTION WIDTH 18.4 % (11.5-14.0); SEGMENTED NEUTROPHILS % (AUTO) 79.9 % (42-78); TOTAL CELLS COUNTED % (AUTO) 100 %
[2019-06-23 09:31] LABS: HEMOGLOBIN 7.4 g/dL (12.0-15.5)
[2019-06-23] MEDS ORDERED: DIPHENHYDRAMINE HCL 50 MG/ML VIAL IV ONE (09:41)
[2019-06-23] MEDS ORDERED: METHYLPREDNISOLONE INJ 125 MG/2 ML SDV IV ONE (09:41)
[2019-06-23] MEDS ORDERED: FAMOTIDINE INJ/PF 20 MG/2 ML SDV IV ONE (09:41)
[2019-06-23 09:48] LABS: ALBUMIN 2.8 g/dL (3.5-5.0); ALKALINE PHOSPHATASE 113 U/L (38-126); ANION GAP 9 (5-19); ASPARTATE AMINO TRANSFERASE 35 U/L (14-36); BILIRUBIN,DIRECT 0.3 mg/dL (0.0-0.4); BILIRUBIN,TOTAL 0.7 mg/dL (0.2-1.3); BLOOD UREA NITROGEN 14 mg/dL (7-20); CALCIUM 7.5 mg/dL (8.4-10.2); CARBON DIOXIDE 28 mmol/L (22-30); CHLORIDE 103 mmol/L (98-107); CREATINE KINASE 72 U/L (30-135); GLUCOSE 139 mg/dL (75-110); POTASSIUM 4.4 mmol/L (3.6-5.0); TOTAL PROTEIN 5.2 g/dL (6.3-8.2)
[2019-06-23 10:22] VITALS: BP 84/47
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
--- NOTE | 2019-06-23 23:49 | EKG REPORT ---
SEVERITY:- ABNORMAL ECG - SINUS RHYTHM ABNORMAL T, CONSIDER ISCHEMIA, LATERAL LEADS BORDERLINE PROLONGED QT INTERVAL : Confirmed by: Josué Eddy 23-Jun-2019 23:48:54
== END 2019-06-23 10:08 | disposition short-term general hospital (02) ==
LOC: ER 08:15
DX: R07.9 Chest pain, unspecified (principal); R10.84 Generalized abdominal pain; R10.817 Generalized abdominal tenderness; R51 Headache; M54.2 Cervicalgia; M25.571 Pain in right ankle and joints of right foot; V43.62XA Car passenger injured in collision with other type car in traffic accident, initial encounter; W22.12XA Striking against or struck by front passenger side automobile airbag, initial encounter; Y93.89 Activity, other specified; I12.0 Hypertensive chronic kidney disease with stage 5 chronic kidney disease or end stage renal disease; E11.22 Type 2 diabetes mellitus with diabetic chronic kidney disease; N18.6 End stage renal disease; D63.1 Anemia in chronic kidney disease; Z99.2 Dependence on renal dialysis; I95.9 Hypotension, unspecified; G89.29 Other chronic pain; Z79.899 Other long term (current) drug therapy; Z88.8 Allergy status to other drugs, medicaments and biological substances; Z88.1 Allergy status to other antibiotic agents; Z91.041 Radiographic dye allergy status; Z88.0 Allergy status to penicillin
CPT/HCPCS: 93005; 99291; 96374; 96375; 36415; 82550; 85025; 80053; 84484; 71045; 93010; J1200; J2930; J7030; S0028

== ENCOUNTER → 2020-07-06 | Outpatient (CLI) | payer MEDICARE ==
--- NOTE | 2020-07-06 16:21 | RADIOLOGY REPORT (SQ) ---
EXAM DESCRIPTION: MRI ABDOMEN COMBO IMAGES COMPLETED DATE/TIME: 07/06/2020 2:18 pm REASON FOR STUDY: (N28.89)OTHER SPECIFIED DISORDERS OF KIDNEY AND URETER N28.89 OTHER SPECIFIED DIS ORDERS OF KIDNEY AND URETER COMPARISON: CT dated 06/23/2019. TECHNIQUE: Multiplanar multisequence imaging performed without and with contrast including sagittal, axial and coronal T2, axial T1, axial gradient fat sat T1, axial, sagittal and coronal fat sat T1 po st contrast. CONTRAST TYPE AND DOSE: 20 mL Prohance. RENAL FUNCTION: Dialysis patient. Scheduled for dialysis tomorrow morning. LIMITATIONS: None. FINDINGS: LIVER: Normal size. No masses. No dilated ducts. CBD normal. SPLEEN: Normal size. No focal lesions. PANCREAS: No masses. No adjacent inflammation or peripancreatic fluid collections. Pancreatic duct no t dilated. GALLBLADDER: No masses. No stones. No gallbladder wall thickening or pericholecystic fluid. ADRENAL GLANDS: No significant masses or asymmetry. RIGHT KIDNEY AND URETER: Markedly atrophic. Numerous cortical cysts. No solid masses. No hydronephr osis. LEFT KIDNEY AND URETER: Markedly atrophic. Numerous cortical cysts. Heterogenous solid mass in the upper pole. Heterogenous enhancement. Current craniocaudal measurement is 3.6 cm (coronal series 12 , image 55). AP measurement is 4.0 cm and transverse measurement is 4.0 cm (axial series 108, image 24). Corresponding measurements on the prior CT were 3.2 by 3.7 by 3.6 cm. No hydronephrosis. AORTA AND VESSELS: No aneurysm. No dissection. Renal arteries, SMA, celiac without stenosis. RETROPERITONEUM: No retroperitoneal adenopathy, hemorrhage or masses. BOWEL: No visualized masses. No inflammation. No significant dilatation. ABDOMINAL WALL AND PERITONEUM: No hernias. No free fluid. BONES: No acute or significant findings. OTHER: No other significant finding. IMPRESSION: 1. ENHANCING MASS IN THE UPPER POLE OF THE LEFT KIDNEY. MEASUREMENTS ON THE CURRENT MRI ARE SLIGHTLY LARGER COMPARED TO THE PRIOR CT, ALTHOUGH SOME OF THE DIFFERENCE MAY BE DUE TO SCANNING TECHNOLOGIES . 2. MARKEDLY ATROPHIC KIDNEYS WITH NUMEROUS CORTICAL CYSTS SECONDARY TO END-STAGE RENAL DISEASE. TECHNICAL DOCUMENTATION: JOB ID: [id number] 2010 [employer]- All Rights Reserved Reading location - IP/workstation name: [email or web address]
== END ==
LOC: RAD 11:48
PROVIDERS: ATTEND Urology
DX: N28.89 Other specified disorders of kidney and ureter (principal)
CPT/HCPCS: 82565; 74183; A9576

== ENCOUNTER 2020-08-21 15:33 | Emergency (ER) | payer MEDICARE ==
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
[2020-08-21] MEDS ORDERED: ACETAMINOPHEN 325 MG TABLET PO ONE (17:43)
--- NOTE | 2020-08-21 18:04 | RADIOLOGY REPORT (SQ) ---
EXAM DESCRIPTION: CHEST SINGLE VIEW IMAGES COMPLETED DATE/TIME: 08/21/2020 4:35 pm REASON FOR STUDY: shortness of breath; covid +. COMPARISON: 07/22/2019 EXAM PARAMETERS: NUMBER OF VIEWS: One view. TECHNIQUE: Single frontal radiographic view of the chest acquired. RADIATION DOSE: NA LIMITATIONS: None. FINDINGS: LUNGS AND PLEURA: Lungs are hyperinflated. Diffuse increased interstitial prominence is s table from prior. There is improved aeration in both lungs. No focal consolidation or pneumothorax. No pleural effusion. MEDIASTINUM AND HILAR STRUCTURES: No masses. Contour normal. HEART AND VASCULAR STRUCTURES: Postoperative changes of prior CABG. Moderate cardiomegaly. No pulmo nary vascular congestion. BONES: No acute findings. HARDWARE: None in the chest. OTHER: No other significant finding. IMPRESSION: Hyperinflated lungs which can be seen with obstructive lung disease. No acute cardiopul monary disease. TECHNICAL DOCUMENTATION: JOB ID: [id number] 2010 [employer]- All Rights Reserved Reading location - IP/workstation name: [email or web address]
[2020-08-21 18:41] LABS: ABSOLUTE EOSINOPHILS # (AUTO) 0.1 10^3/uL (0.0-0.6); ABSOLUTE LYMPHOCYTES (AUTO) 0.9 10^3/uL (0.5-4.7); ABSOLUTE MONOCYTES (AUTO) 0.5 10^3/uL (0.1-1.4); ABSOLUTE NEUT (AUTO) 4.4 10^3/uL (1.7-8.2); BASOPHILS % (AUTO) 0.4 % (0-2); EOSINOPHILS % (AUTO) 0.9 % (0-6); HEMATOCRIT 30.2 % (36.0-47.0); HEMOGLOBIN 9.8 g/dL (12.0-15.5); LYMPHOCYTES % (AUTO) 15.6 % (13-45); MEAN CORPUSCULAR HEMOGLOBIN 27.3 pg (27.0-33.4); MEAN CORPUSCULAR HGB CONC 32.3 g/dL (32.0-36.0); MEAN CORPUSCULAR VOLUME 85 fl (80-97); MONOCYTES % (AUTO) 8.1 % (3-13); PLATELET COUNT 187 10^3/uL (150-450); RED BLOOD COUNT 3.57 10^6/uL (3.72-5.28); TOTAL CELLS COUNTED % (AUTO) 100 %; WHITE BLOOD COUNT 5.8 10^3/uL (4.0-10.5)
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
[2020-08-21 18:57] LABS: ALBUMIN 3.8 g/dL (3.5-5.0); ALKALINE PHOSPHATASE 152 U/L (38-126); ANION GAP 16 (5-19); ASPARTATE AMINO TRANSFERASE 88 U/L (14-36); BILIRUBIN,DIRECT 0.7 mg/dL (0.0-0.4); BILIRUBIN,TOTAL 0.7 mg/dL (0.2-1.3); BLOOD UREA NITROGEN 60 mg/dL (7-20); CARBON DIOXIDE 29 mmol/L (22-30); CHLORIDE 89 mmol/L (98-107); GLUCOSE 86 mg/dL (75-110)
[2020-08-21 18:57] LABS: ARTERIAL BLOOD BASE EXCESS 2.7 mmol/L; ARTERIAL BLOOD H2CO3 1.01 mmol/L (1.05-1.35); ARTERIAL BLOOD HCO3 25.8 mmol/L (20-24); ARTERIAL BLOOD O2 SATURATION 96.1 % (94-98); ARTERIAL BLOOD PCO2 33.6 mmHg (35-45); ARTERIAL BLOOD PO2 73.9 mmHg (80-100); ARTERIAL BLOOD TOTAL CO2 26.8 mmol/L (21-25)
[2020-08-21 18:58] LABS: ARTERIAL BLOOD FIO2 21%
[2020-08-21 19:03] LABS: POTASSIUM 7.2 mmol/L (3.6-5.0)
[2020-08-21] MEDS ORDERED: DEXTROSE 50%-WATER 25 GM/50 ML DISP.SYRIN IV ONE ×2 (19:04→22:54)
[2020-08-21] MEDS ORDERED: INSULIN REG, HUMAN 100 UNIT/ML 3 ML VIAL (PYX) IV ONE ×2 (19:04→22:54)
[2020-08-21] MEDS ORDERED: CALCIUM GLUCONATE 1000 MG/10 ML INJ IV ONE (19:08)
[2020-08-21] MEDS ORDERED: SODIUM POLYSTYRENE SULFONATE 15 GM/60 ML PO ONE (20:14)
--- NOTE | 2020-08-21 22:41 | EKG REPORT ---
SEVERITY:- DEFECTIVE ECG - SINUS RHYTHM BORDERLINE R WAVE PROGRESSION, ANTERIOR LEADS : Confirmed by: Adams Greenberg MD 21-Aug-2020 22:41:03
[2020-08-21] MEDS ORDERED: ALBUTEROL SULFATE 0.083% NEB 2.5 MG/3 ML AMPUL NEB ONE (23:31)
[2020-08-21] MEDS ORDERED: ONDANSETRON HCL INJ/PF 4 MG/2 ML SDV IV ONE (23:49)
[2020-08-21] MEDS ORDERED: ONDANSETRON HCL INJ/PF 4 MG/2 ML SDV ONE (23:50)
[2020-08-22 02:07] VITALS: BP 120/59
--- OUTSIDE RECORDS SUMMARY | 2020-08-24 10:37 | XMS REPORT ---
:1960 Author Organization [facility] [place] [facility] [place] [address] [place] [address] Care Team Providers Name Role Phone Unavailable Unavailable Unavailable Allergies, Adverse Reactions, Alerts Allergy Name Allergy Status Severity Reaction(s) Onset Inactive Treat ing Comments Type Date Date Clinician Vancomycin Drug Active 2016-09 HCl allergy - 00:00:0 0 Phenergan Drug Active 2016-09 allergy -10 00:00:0 0 CloNIDine Drug Active 2016-09 HCl allergy - 00:00:0 0 Medications This patient has no known medications. Problems This patient has no known problems. Procedures This patient has no known procedures. Results This patient has no known results. Social History This patient has no known social history. Vital Signs This patient has no known vital signs.
== END 2020-08-22 02:07 | disposition short-term general hospital (02) ==
LOC: ER 15:33
DX: U07.1 COVID-19 (principal); E87.5 Hyperkalemia; I12.0 Hypertensive chronic kidney disease with stage 5 chronic kidney disease or end stage renal disease; E11.22 Type 2 diabetes mellitus with diabetic chronic kidney disease; N18.6 End stage renal disease; Z99.2 Dependence on renal dialysis; Z91.15 Patient's noncompliance with renal dialysis; R11.2 Nausea with vomiting, unspecified; R19.7 Diarrhea, unspecified; R53.83 Other fatigue; M79.10 Myalgia, unspecified site; R51.9 Headache, unspecified; R07.9 Chest pain, unspecified; R06.02 Shortness of breath; I25.10 Atherosclerotic heart disease of native coronary artery without angina pectoris; Z88.8 Allergy status to other drugs, medicaments and biological substances; Z88.1 Allergy status to other antibiotic agents; Z91.041 Radiographic dye allergy status; Z88.0 Allergy status to penicillin
CPT/HCPCS: 93005; 96376; 94640; 99285; 96374; 96375; 36415; 82962; 82803; 84132; 85025; 0241U; 80053; 84484; 71045; 93010; A9270 ×4; J0610; J3490; J2405; C9803; J1815; J7613